=== PATIENT | female | born 1995 | race Caucasian/White ===

== ENCOUNTER 2017-08-25 13:29 | Emergency (ER) | payer OTHER ==
[~2017-08-25] VITALS: Ht 160 cm; Wt 52.3 kg
[2017-08-25 14:49] VITALS: BP 119/71
== END 2017-08-25 15:27 | disposition home or self-care (01) ==
LOC: EMS 13:33 → EEVIPCON 13:33 → EMS 15:27
DX: R20.0 Anesthesia of skin (principal); R03.0 Elevated blood-pressure reading, without diagnosis of hypertension; R20.2 Paresthesia of skin
CPT/HCPCS: 99282